=== PATIENT | female | born 1940 | race Caucasian/White ===

== ENCOUNTER 2024-12-08 21:10 | Inpatient (IN) ==
[2024-12-08] MEDS ORDERED: IOPAMIDOL 100 ML BOTTLE IV ONE ×2 (21:11)
[2024-12-08 22:20] LABS: Basophils # (Auto) 0.01 K/mcL (0.00-0.30); Basophils % (Auto) 0.1 % (0.0-2.0); Eosinophils # (Auto) 0.02 K/mcL (0.00-0.70); Eosinophils % (Auto) 0.3 % (0.0-7.0); Hematocrit 34.6 % (34.1-44.9); Hemoglobin 10.3 g/dL (11.2-15.7); Lymphocytes # (Auto) 0.14 K/mcL (1.50-4.80); Lymphocytes % (Auto) 1.8 % (15.5-49.0); Mean Cell Volume 104.8 fL (80.0-100.0); Mean Corpuscular HGB Conc 29.8 g/dL (31.0-36.0); Mean Platelet Volume 9.6 fL (8.8-12.5); Monocytes # (Auto) 0.01 K/mcL (0.10-0.90); Monocytes % (Auto) 0.1 % (1.0-12.0); Neutrophils % (Auto) 97.1 % (38.0-78.0); Platelet Count 142 K/mcL (140-440); Red Cell Distribution Width 13.9 % (11.5-14.5); WBC 7.8 K/mcL (4.5-11.0)
[2024-12-08 22:31] LABS: ALT/SGPT 68 U/L (<40); AST/SGOT 142 U/L (<32); Albumin 3.1 gm/dL (3.2-5.2); Albumin/Globulin Ratio 1.1 (1.0-2.3); Alkaline Phosphatase 121 U/L (39-117); Bilirubin,Total 0.4 mg/dL (0.1-1.0); Blood Urea Nitrogen 31 mg/dL (8-23); Calcium 8.8 mg/dL (8.6-10.4); Carbon Dioxide 23 mmol/L (22-30); Chloride 97 mmol/L (96-108); Globulin 2.9 gm/dL (2.2-3.7); Glomerular Filtration Rate 51; Glucose 82 mg/dL (70-105); Potassium 4.6 mmol/L (3.3-5.1); Sodium 132 mmol/L (133-145)
[2024-12-08 23:11] LABS: INR 1.2 (0.9-1.1); Partial Thromboplastin Time 30.1 sec (20.0-37.0); Prothrombin Time 16.3 sec (11.9-14.5)
[2024-12-09 00:07] LABS: Appearance,Urine Hazy (Clear); Bacteria,Urine Mod /hpf (0); Bilirubin,Urine Negative (Negative); Color,Urine Yellow; Glucose,Urine (UA) Negative (Negative); Ketones,Urine Negative (Negative); Leukocyte Esterase,Urine 1+(Small) /uL (Negative); Nitrate,Urine Negative (Negative); Protein,Urine 100 mg/dL (Negative); Urine Blood 2+(Moderate) ery/mcL (Negative); Urine RBC 60 /hpf (0-3); Urine Squamous Epithelial Cell 1 /hpf (0-4); Urine WBC 75 /hpf (0-4); Urobilinogen,Urine Normal
[2024-12-09] MEDS: niCARdipine 25 MG/10 ML VIAL IV ONE (00:37)
[2024-12-09] MEDS: LABETALOL HCL 20 MG/4 ML VIAL IV ONE (00:37)
[2024-12-09] MEDS: 0.9 % SODIUM CHLORIDE 250 ML ONE (00:38)
[2024-12-09] MEDS: TENECTEPLASE 50 MG/10 ML VIAL IV ONE (00:40)
[2024-12-09] MEDS: cefTRIAXone 1 GM VIAL IV ONE (01:22)
[2024-12-09] MEDS: ACETAMINOPHEN 1,000 MG/100 ML BAG IV ONE (01:23)
[2024-12-09] MEDS: IPRATROPIUM/ALBUTEROL 3 ML AMPUL.NEB NEB ONE (04:56)
[2024-12-09 06:42] LABS: Basophils # (Auto) 0.01 K/mcL (0.00-0.30); Basophils % (Auto) 0 % (0.0-2.0); Eosinophils # (Auto) 0 K/mcL (0.00-0.70); Eosinophils % (Auto) 0 % (0.0-7.0); Hematocrit 31.9 % (34.1-44.9); Hemoglobin 9.9 g/dL (11.2-15.7); Lymphocytes # (Auto) 0.32 K/mcL (1.50-4.80); Lymphocytes % (Auto) 1.2 % (15.5-49.0); Mean Cell Volume 101.6 fL (80.0-100.0); Monocytes # (Auto) 0.99 K/mcL (0.10-0.90); Monocytes % (Auto) 3.7 % (1.0-12.0); Neutrophils % (Auto) 93.5 % (38.0-78.0); Platelet Count 172 K/mcL (140-440); RBC 3.14 M/mcL (3.59-5.38); Red Cell Distribution Width 14.2 % (11.5-14.5); WBC 26.9 K/mcL (4.5-11.0)
[2024-12-09 06:53] LABS: ALT/SGPT 307 U/L (<40); AST/SGOT 487 U/L (<32); Albumin 3.3 gm/dL (3.2-5.2); Albumin/Globulin Ratio 1.2 (1.0-2.3); Alkaline Phosphatase 110 U/L (39-117); Bilirubin,Direct < 0.2 mg/dL (0-0.3); Bilirubin,Total 0.2 mg/dL (0.1-1.0); Blood Urea Nitrogen 34 mg/dL (8-23); Calcium 9.1 mg/dL (8.6-10.4); Carbon Dioxide 25 mmol/L (22-30); Chloride 98 mmol/L (96-108); Globulin 2.8 gm/dL (2.2-3.7); Glomerular Filtration Rate 31; Glucose 98 mg/dL (70-105); Lactate Dehydrogenase 466 U/L (135-225); Phosphorous 2.3 mg/dL (2.5-4.5); Potassium 4.6 mmol/L (3.3-5.1); Sodium 135 mmol/L (133-145); Triglycerides 58 mg/dL (<150); Uric Acid 5.9 mg/dL (2.5-8.0)
[2024-12-09] MEDS ORDERED: METOCLOPRAMIDE 10 MG/2 ML VIAL IV PRN (07:59)
[2024-12-09] MEDS ORDERED: MAGNESIUM SULFATE 2 GM/50 ML BAG IV PRN (07:59)
[2024-12-09] MEDS ORDERED: POLYETHYLENE GLYCOL 3350 17 GM PACKET PO PRN (07:59)
[2024-12-09] MEDS ORDERED: IPRATROPIUM/ALBUTEROL 3 ML AMPUL.NEB NEB PRN (07:59)
[2024-12-09] MEDS ORDERED: POTASSIUM CHLORIDE 40 MEQ in DEXTROSE 5% IN WATER 500 ML IV PRN (07:59)
[2024-12-09] MEDS ORDERED: METOPROLOL TARTRATE 5 MG/5 ML VIAL IV PRN (07:59)
[2024-12-09] MEDS ORDERED: SENNOSIDES 1 TABLET PO PRN (07:59)
[2024-12-09] MEDS ORDERED: ACETAMINOPHEN 325 MG TABLET PO PRN (07:59)
[2024-12-09] MEDS ORDERED: POTASSIUM CHLORIDE 20 MEQ TABLET PO PRN ×2 (07:59)
[2024-12-09] MEDS ORDERED: ONDANSETRON 4 MG/2 ML VIAL IV PRN (07:59)
[2024-12-09] MEDS: ENOXAPARIN 40 MG/0.4 ML SYRINGE SQ SCH (08:20)
[2024-12-09] MEDS: DULoxetine 30 MG CAPSULE PO SCH (08:21)
[2024-12-09] MEDS: OMEPRAZOLE 20 MG CAPSULE PO SCH (08:21)
[2024-12-09] MEDS: HYDROcodone/APAP 10/325MG TABLET PO SCH (08:21)
[2024-12-09] MEDS: cefTRIAXone 1 GM VIAL IV SCH (08:32)
[2024-12-09] MEDS: 0.9 % SODIUM CHLORIDE 1,000 ML IV SCH (08:36)
[2024-12-09] MEDS: DOCUSATE SODIUM 100 MG CAPSULE PO SCH (08:42)
[2024-12-09 08:47] LABS: Band Neutrophils % 5 % (0-10); Lymphocytes % 4 % (15-49); Metamyelocytes % 1 %; Monocytes % (Manual) 7 % (1-12); Ovalocytes 1+ (None Seen); Platelet Estimate NORMAL (Normal); RBC Morphology ABNORMAL (Normal); Segmented Neutrophils % 83 % (38-78)
[2024-12-09] MEDS: BUDESONIDE FORMOTEROL INH SCH (10:35)
[2024-12-09] MEDS: metroNIDAZOLE 500 MG/100 ML BAG IV SCH (10:40)
[2024-12-09] MEDS: MONTELUKAST 10 MG TABLET PO SCH (21:41)
[2024-12-10 06:18] LABS: Potassium 4.9 mmol/L (3.3-5.1); Sodium 133 mmol/L (133-145)
[2024-12-10 06:19] LABS: ALT/SGPT 191 U/L (<40); AST/SGOT 159 U/L (<32); Albumin 2.9 gm/dL (3.2-5.2); Alkaline Phosphatase 95 U/L (39-117); Bilirubin,Direct < 0.2 mg/dL (0-0.3); Bilirubin,Total < 0.2 mg/dL (0.1-1.0); Blood Urea Nitrogen 40 mg/dL (8-23); Calcium 8.7 mg/dL (8.6-10.4); Carbon Dioxide 24 mmol/L (22-30); Chloride 98 mmol/L (96-108); Glomerular Filtration Rate 34; Glucose 81 mg/dL (70-105); Lactate Dehydrogenase 147 U/L (135-225); Phosphorous 4.2 mg/dL (2.5-4.5); Triglycerides 64 mg/dL (<150)
[2024-12-10 06:23] LABS: Basophils # (Auto) 0.01 K/mcL (0.00-0.30); Basophils % (Auto) 0 % (0.0-2.0); Eosinophils # (Auto) 0.02 K/mcL (0.00-0.70); Eosinophils % (Auto) 0 % (0.0-7.0); Hematocrit 28.6 % (34.1-44.9); Lymphocytes # (Auto) 0.85 K/mcL (1.50-4.80); Lymphocytes % (Auto) 1.9 % (15.5-49.0); Mean Corpuscular HGB Conc 31.5 g/dL (31.0-36.0); Mean Platelet Volume 10.4 fL (8.8-12.5); Monocytes # (Auto) 2.52 K/mcL (0.10-0.90); Monocytes % (Auto) 5.6 % (1.0-12.0); Neutrophils % (Auto) 88.1 % (38.0-78.0); Platelet Count 162 K/mcL (140-440); RBC 2.86 M/mcL (3.59-5.38); Red Cell Distribution Width 14.3 % (11.5-14.5)
[2024-12-10] MEDS: VENLAFAXINE 37.5 MG TAB.ER.24H PO SCH (09:04)
[2024-12-10] MEDS: ENOXAPARIN 30 MG/0.3 ML SYRINGE SQ SCH (09:05)
[2024-12-10] MEDS: DILTIAZEM 120 MG CAP.XL.24H PO SCH (09:05)
[2024-12-10 10:33] LABS: Band Neutrophils % 36 % (0-10); Lymphocytes % 2 % (15-49); Metamyelocytes % 5 %; Monocytes % (Manual) 8 % (1-12); Platelet Estimate NORMAL (Normal); Polychromasia FEW (None Seen); RBC Morphology ABNORMAL (Normal); Segmented Neutrophils % 49 % (38-78)
[2024-12-10] MEDS: TIOTROPIUM BROMIDE INH SCH (14:19)
[2024-12-11 06:25] LABS: Hematocrit 30.3 % (34.1-44.9); Hemoglobin 9.3 g/dL (11.2-15.7); Mean Cell Volume 101.3 fL (80.0-100.0); Mean Corpuscular HGB Conc 30.7 g/dL (31.0-36.0); Mean Platelet Volume 10.8 fL (8.8-12.5); Platelet Count 171 K/mcL (140-440); RBC 2.99 M/mcL (3.59-5.38); Red Cell Distribution Width 14.4 % (11.5-14.5)
[2024-12-11 06:27] LABS: ALT/SGPT 139 U/L (<40); AST/SGOT 84 U/L (<32); Albumin/Globulin Ratio 0.9 (1.0-2.3); Alkaline Phosphatase 112 U/L (39-117); Bilirubin,Direct < 0.2 mg/dL (0-0.3); Bilirubin,Total < 0.2 mg/dL (0.1-1.0); Blood Urea Nitrogen 34 mg/dL (8-23); Calcium 9.4 mg/dL (8.6-10.4); Carbon Dioxide 25 mmol/L (22-30); Chloride 102 mmol/L (96-108); Globulin 3.5 gm/dL (2.2-3.7); Glomerular Filtration Rate 41; Glucose 92 mg/dL (70-105); Lactate Dehydrogenase 153 U/L (135-225); Phosphorous 3.3 mg/dL (2.5-4.5); Potassium 4.2 mmol/L (3.3-5.1); Sodium 136 mmol/L (133-145); Triglycerides 69 mg/dL (<150)
[2024-12-11 09:02] LABS: Band Neutrophils % 7 % (0-10); Eosinophils % (Manual) 1 % (0-7); Lymphocytes % 2 % (15-49); Metamyelocytes % 2 %; Monocytes % (Manual) 3 % (1-12); Platelet Estimate NORMAL (Normal); RBC Morphology NORMAL (Normal); Segmented Neutrophils % 85 % (38-78)
[2024-12-11] MEDS: ENOXAPARIN 40 MG/0.4 ML SYRINGE SQ SCH (09:02)
[2024-12-12 06:03] LABS: Basophils # (Auto) 0.04 K/mcL (0.00-0.30); Basophils % (Auto) 0.3 % (0.0-2.0); Eosinophils # (Auto) 0.69 K/mcL (0.00-0.70); Eosinophils % (Auto) 4.5 % (0.0-7.0); Hematocrit 31.7 % (34.1-44.9); Hemoglobin 9.6 g/dL (11.2-15.7); Lymphocytes # (Auto) 1.19 K/mcL (1.50-4.80); Lymphocytes % (Auto) 7.7 % (15.5-49.0); Mean Cell Volume 101.9 fL (80.0-100.0); Mean Corpuscular HGB Conc 30.3 g/dL (31.0-36.0); Mean Platelet Volume 10.5 fL (8.8-12.5); Monocytes # (Auto) 0.83 K/mcL (0.10-0.90); Monocytes % (Auto) 5.4 % (1.0-12.0); Neutrophils % (Auto) 81.8 % (38.0-78.0); Platelet Count 195 K/mcL (140-440); RBC 3.11 M/mcL (3.59-5.38); Red Cell Distribution Width 14.2 % (11.5-14.5); WBC 15.4 K/mcL (4.5-11.0)
[2024-12-12 06:50] LABS: ALT/SGPT 105 U/L (<40); AST/SGOT 44 U/L (<32); Albumin 3.1 gm/dL (3.2-5.2); Albumin/Globulin Ratio 0.9 (1.0-2.3); Alkaline Phosphatase 102 U/L (39-117); Bilirubin,Direct < 0.2 mg/dL (0-0.3); Bilirubin,Total < 0.2 mg/dL (0.1-1.0); Blood Urea Nitrogen 27 mg/dL (8-23); Carbon Dioxide 28 mmol/L (22-30); Chloride 105 mmol/L (96-108); Globulin 3.4 gm/dL (2.2-3.7); Glomerular Filtration Rate 51; Glucose 99 mg/dL (70-105); Lactate Dehydrogenase 122 U/L (135-225); Phosphorous 2.9 mg/dL (2.5-4.5); Potassium 5.2 mmol/L (3.3-5.1); Sodium 140 mmol/L (133-145); Triglycerides 69 mg/dL (<150); Uric Acid 5.7 mg/dL (2.5-8.0)
[2024-12-12] MEDS: MELOXICAM 7.5 MG TABLET PO ONE (09:05)
[2024-12-12 11:44] VITALS: TEMP 97.6; O2SAT 96
== END 2024-12-12 12:48 | disposition home or self-care (01) | DRG 871 ==
LOC: EDACCT# → ED 21:10 → ICU 12-09 04:03
PROVIDERS: ADMIT Internal Medicine; ATTEND Internal Medicine